=== PATIENT | female | born 1970 | race Caucasian/White ===

== ENCOUNTER 2024-02-21 23:19 | Emergency (ER) | payer OTHER, SELFPAY ==
[2024-02-21 23:28] VITALS: BP 118/82; PULSE 67; RESP 22; TEMP 37; O2SAT 99; BMI 20.9
--- NOTE | 2024-02-21 23:38 | PC.NURSE ---
pt states she has never broken a bone before. 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 Arrives with it elevated and ice in place.
--- NOTE | 2024-02-22 00:07 | CRLHL7_ITS ---
For Patients: As a result of the Century Cures Act, medical imaging exams and procedure reports are released immediately into your electronic medical record. You may view this report before your referring provider. If you have questions, please contact your health care provider. Indication: Fall, deformity Technique: Three views of the right wrist Comparison: None Findings/Impression: Impacted, mildly displaced, and angulated fracture of the distal radius, along with a minimally displaced fracture of the ulnar styloid process. Dictated by Alvin Erwin MD @ 02/22/2024 1:03:56 AM (Electronically Signed)
--- NOTE | 2024-02-22 00:07 | ED.GENADULT ---
HPI - General Adult General Chief complaint: Extremity Pain/Injury, Upper Stated complaint: right wrist injury Time Seen by Provider: 02/21/24 23:55 Source: patient Mode of arrival: ambulatory Limitations: no limitations History of Present Illness HPI narrative: 53-year-old female presents to the emergency department for evaluation of right wrist pain and deformity after a fall just prior to arrival. Has not taken any medication to help with symptoms. Was told that she has ?brittle bones? because of prior chemotherapy. No prior fracture. Pain is located at the distal radius and proximal 2nd metacarpal area. She can move the fingers though with some difficulty. Has normal sensation in all fingers. No other areas of injury noted. No pain in the elbow, shoulder, chest wall. She slipped on the ice, fall was purely mechanical. No syncopal or weakness or neurological changes prior to fall. remote history of breast cancer not currently on treatment. Reports no long-term medications, no allergies. ROS is negative for other musculoskeletal, neurological skin or generalized concerns. Related Data Home Medications ?Medication ?Instructions ?Recorded ?Confirmed No Known Home Medications 02/21/24 02/21/24 Allergies Allergy/AdvReac Type Severity Reaction Status Date / Time No Known Drug Allergies Allergy Verified 02/21/24 23:35 Exam Const: Vital Signs, click to edit/add: Vital Signs - 24 hr 02/21/24 23:28 Temperature 98.6 F Pulse Rate [Left P ulse Oximeter] 67 Respiratory Rate 22 Blood Pressure [Le ft Upper Arm] 118/82 Pulse Oximetry 99 Oxygen Delivery Me thod Room Air Documenting provider has reviewed patient's vital signs: yes Common normals: no apparent distress and alert General appearance: cooperative and well kempt HENMT: Common normals: normocephalic Head and scalp: normocephalic Face and sinus: normal facial exam Other: Lips acyanotic Eye: Common normals: conjunctivae normal General eye: normal appearance of both eyes Conjunctiva: conjunctiva(e) normal Neck & C-Spine: General: normal visual inspection Resp: Common normals: normal respiratory effort, no use of accessory muscles and clear to auscultation bilaterally Effort & inspection: able to speak in complete sentences Auscultation: clear to auscultation bilaterally Cardio: Common normals: regular rate, regular rhythm, S1 normal heart sound, S2 normal heart sound and no murmurs Rate: regular rate Rhythm: regular rhythm Heart sounds: S1 normal and S2 normal Extremity: Other: Grossly normal appearance of left arm. Right shoulder and elbow move normally. Right wrist has dorsal displacement of distal portion of risk, specifically 2nd proximal metacarpal area. Tenderness at distal radius. Mild deformity appreciated. No bruising. Normal radial pulses, normal capillary refill and sensation in all fingers. Can wiggle her fingers though it does hurt to do so. Claims she cannot but on command can. Normal abduction and adduction of fingers. Neuro: Sensorium/orientation: alert Speech: speech normal Motor exam: no tremor noted Psych: Appearance: well kempt Attitude: engaged Insight: insight good Judgement: judgment good Skin: Common normals: no rashes or lesions noted General skin exam: no rashes or lesions noted Course Course ED Course: 53-year-old female presenting with right wrist injury, suspect mildly displaced fracture. Recommended oral pain medication, given 5 mg of oxycodone and a 1000 mg of Tylenol. X-ray of right risk. Anticipate hematoma block and closed reduction. Await findings. Consider ortho consult. Reevaluation(s) Reevaluation #1: Spoke with Ortho, they agree with my impression that there is a mildly displaced angulated distal radius fracture that could use reduction. Risks and benefits of this were discussed with patient. She verbalizes understanding and agreement gives verbal consent. Procedure: Hematoma block and reduction. Verbal consent obtained. 3 mL of 1% lidocaine with 1 mL of bupivacaine were used to inject into the side of fracture under sterile conditions after cleansing with iodine to right dorsal distal wrist. Well tolerated. Dental manipulation was then used to move the distal fragment ventrally and the proximal fragment dorsally. Did give better visual alignment and patient reported improvement in pain. Dorsal and ventral splint applied to wrist, well tolerated. Repeat x-ray ordered. Radiologist reports that the x-ray does not look much better but per my impression it is less angulated. Patient counseled on pain control. Recommend Tylenol 1000 mg every 6 hours. InStent meds prescriptions for Toradol 10 mg q.i.d. p.r.n. and oxycodone 10 tablets given. Counseled on use of Toradol and Tylenol as first-line therapy, rare use of the oxycodone. Patient will need orthopedic follow-up. Orthopedist recommends follow-up in a couple days and anticipate surgery Friday if needed. Patient is uncertain if she will follow-up with our ortho team but the contact information is provided for her. She may arrange her own orthopedic follow-up with her provider of choice but stressed the importance of doing so. May require surgery, orthopedic team will arrange this if needed. Patient feeling much better after reduction. Alarm symptoms reviewed that would warrant repeat ED presentation. She verbalizes understanding and agreement. Vital Signs Vital signs: Initial Vital Signs Temperature 98.6 F 02/21/24 23:28 Temperature Source Temporal Artery Scan 02/21/24 23:28 Pulse Rate 67 02/21/24 23:28 Respiratory Rate 22 02/21/24 23:28 Blood Pressure 118/82 02/21/24 23:28 Blood Pressure Mean 94 02/21/24 23:28 Pulse Oximetry 99 02/21/24 23:28 Oxygen Delivery Method Room Air 02/21/24 23:28 Vital Signs Temperature 98.6 F 02/21/24 23:28 Pulse Rate 67 02/21/24 23:28 Respiratory Rate 22 02/21/24 23:28 Blood Pressure 118/82 02/21/24 23:28 Pulse Oximetry 99 02/21/24 23:28 Oxygen Delivery Method Room Air 02/21/24 23:28 Temperature 98.6 F 02/21/24 23:28 Pulse Rate 67 02/21/24 23:28 Respiratory Rate 22 02/21/24 23:28 Blood Pressure 118/82 02/21/24 23:28 Pulse Oximetry 99 02/21/24 23:28 Oxygen Delivery Method Room Air 02/21/24 23:28 Medications Administered Medications: Discontinued Medications Generic Name Dose Route Start Last Admin Trade Name Ivory PRN Reason Stop Dose Admin Acetaminophen 1,000 mg 02/22/24 00:07 02/22/24 00:14 Acetaminophen 500 Mg Tablet PO 02/22/24 00:08 1,000 mg ONCE ONE Administration Lidocaine HCl 5 ml 02/22/24 00:54 02/22/24 01:11 Lidocaine 1% 5 Ml (Pf) 5 Ml Vial INJECTION 02/22/24 00:55 5 ml ONCE ONE Administration Oxycodone HCl 5 mg 02/22/24 00:07 02/22/24 00:14 Oxycodone 5 Mg Tablet PO 02/22/24 00:08 5 mg ONCE ONE Administration Medical Decision Making Imaging Data Wrist x-ray: Attestation: I have reviewed the pertinent imaging results. My impression: Angulated and displaced distal radius fracture, small ulnar styloid fracture as well. Repeat x-ray with some improvement after reduction. Radiologist's impression: Findings/Impression: Impacted, mildly displaced, and angulated fracture of the distal radius, along with a minimally displaced fracture of the ulnar styloid process. Dictated by Alvin Erwin MD @ 02/22/2024 1:03:56 AM Discharge Plan Discharge Clinical Impression: Distal radius fracture, right Patient Disposition: Home w/ Parent or Adult Condition: Improved Instructions: Wrist Fracture in Adults (ED) Additional Instructions: As discussed, you did have a mildly displaced fracture to the distal radius, the forearm bone that is on the thumb side of the wrist. This seemed to reduce pretty easily. You have been placed in a temporary splint. You will need to call orthopedics to follow-up. They will likely want to see you in a couple of days. The number for our orthopedic department is [phone]. Please call Friday to secure an appointment. You are more than welcome to visit any orthopedic provider that you like. This may need surgery though I suspect probably not. It is often best to let the initial swelling go down prior to surgical fixation in a stable fracture like yours. Our orthopedic team would likely perform the surgery on Friday based on their availability. The splint that has been placed should not get wet. Be careful when washing hands, showering. For pain, recommend Tylenol 1000 mg every 6 hours. I have given you prescriptions for Toradol which is an anti-inflammatory medicine similar to ibuprofen. You may use the Toradol or 600 mg of ibuprofen every 6 hours also in addition to the Tylenol. I have given her prescription for oxycodone, I am hoping that you do not need these. They will cause and dizziness and nausea but may help if the pain is severe. Please make sure that your maxing out the Tylenol and ibuprofen/Toradol before using the oxycodone. It may cause constipation, consider a stool softener if you use the oxycodone. The orthopedist will give you a more secure time frame on how long you will be in a splint. For most, it is 6-10 weeks, depending on the age of the person and overall bone health. Some numbness and tingling and swelling of the fingers is expected. You may adjust the ends of the [place] wrap slightly to relieve pressure but do not remove the [place] wrap or the splint material until the orthopedic appointment. The sling is only for outings, try not to use it while at home or sleeping. It can cause additional stiffness and complications in the elbow and shoulder. Is only for protection when you are in public situations. Activity Level: Activity as Tolerated Discharge Diet: Regular Prescriptions: No Action No Known Home Medications Follow Up/Referrals: Provider,Not a Local [Primary Care Provider] - Stand Alone Forms: [facility] Info Instructions
[2024-02-22] MEDS: OXYCODONE 5 MG TABLET PO (00:14)
[2024-02-22] MEDS: ACETAMINOPHEN 500 MG TABLET 1000 MG PO (00:14)
[2024-02-22] MEDS: LIDOCAINE 1% 5 ml (pf) 5 ML VIAL INJECTION (01:11)
--- NOTE | 2024-02-22 01:23 | CRLHL7_ITS ---
For Patients: As a result of the Cures Act, medical imaging exams and procedure reports are released immediately into your electronic medical record. You may view this report before your referring provider. If you have questions, please contact your health care provider. Indication: Postreduction Technique: Two views of the right wrist Comparison: Right wrist radiographs performed same day Findings/Impression: Interval splinting of the distal radial and ulnar styloid process fractures, angulation and mild displacement similar to prior study. Dictated by Alvin Erwin MD @ 02/22/2024 1:48:30 AM (Electronically Signed)
--- NOTE | 2024-02-22 01:52 | PC.NURSE ---
written and verbal D/C per MD and RN. Sling placed with all cares explained. disk from radiology. Friend with pt and supportive.
== END 2024-02-22 01:56 | disposition home or self-care (01) ==
PROVIDERS: Emergency Provider Family Medicine
DX: S52.511A Displaced fracture of right radial styloid process, initial encounter for closed fracture (principal); W00.9XXA Unspecified fall due to ice and snow, initial encounter
CPT/HCPCS: 25605; 73100; 73110; 99284; A9270